=== PATIENT | female | born 1950 | race Caucasian/White ===

== ENCOUNTER → 2017-04-22 | Outpatient (CLI) | payer BC, OTHER | LOC: RAD 02:19 | DX: Z12.31 Encounter for screening mammogram for malignant neoplasm of breast (principal) ==

== ENCOUNTER → 2018-04-27 | Outpatient (CLI) | payer BC, OTHER | LOC: RAD 15:11 | DX: Z12.31 Encounter for screening mammogram for malignant neoplasm of breast (principal) ==